=== PATIENT | male | born 1995 | race Caucasian/White ===

== ENCOUNTER 2017-01-31 21:56 | Emergency (ER) | payer OTHER | END 2017-01-31 23:10 | disposition home or self-care (01) | LOC: CED 21:56 | DX: S61.210A Laceration without foreign body of right index finger without damage to nail, initial encounter (principal); F17.210 Nicotine dependence, cigarettes, uncomplicated; Z88.0 Allergy status to penicillin; Z88.1 Allergy status to other antibiotic agents; Z23 Encounter for immunization; W45.8XXA Other foreign body or object entering through skin, initial encounter; Y93.89 Activity, other specified; Y92.69 Other specified industrial and construction area as the place of occurrence of the external cause; Y99.0 Civilian activity done for income or pay | CPT/HCPCS: 12001; 90471; 90715; 99283 ==

== ENCOUNTER 2017-02-01 23:15 | Emergency (ER) | payer OTHER | END 2017-02-01 23:35 | disposition home or self-care (01) | LOC: CFTX 23:15 | DX: S61.210D Laceration without foreign body of right index finger without damage to nail, subsequent encounter (principal); Z88.0 Allergy status to penicillin; Z88.1 Allergy status to other antibiotic agents | CPT/HCPCS: 99281 ==